=== PATIENT | male | born 1960 | race Caucasian/White ===

== ENCOUNTER 2022-10-07 12:50 | Day surgery (SDC) | payer BC ==
[~2022-10-07] VITALS: Ht 182.9 cm; Wt 82.3 kg
[~2022-10-07 12:50] MED LIST: PERCOCET 5-3251 EACH PO
--- NOTE | 2022-10-07 13:22 | NUR ---
PT REPORTS HE ONLY HAD 1 BOWEL MOVEMENT YESTERDAY AFTER DRINKING THE BOWEL PREP AND HAS HAD NONE SINCE. CHARGE NURSE NOTIFIED. CHECK IN HELD OFF AT THIS TIME TO TALK TO DR. ONEILL.
[2022-10-07 13:33] VITALS: BP 140/86
--- NOTE | 2022-10-07 14:58 | NUR ---
PT AND PT'S FRIEND UPDATED ON WAIT TIMES FOR THE PROCEDURE. BOTH PARTIES THANKFUL FOR THE UPDATE.
--- NOTE | 2022-10-07 17:00 | NUR ---
10/07/22 1700 Dana Dneton 1652 PT ARRIVED TO PACU ON 2L VIA NC, PT ASLEEP AND REACTIVE TO TACTILE STIMULI.
[2022-10-07 19:01] VITALS: BP 166/101
--- NOTE | 2022-10-08 13:28 | OR ---
[facility] [address], [place] [address] Signed DATE OF OPERATION: 10/07/2022 SURGEON: Ted Oneill MD PREOPERATIVE DIAGNOSIS: Positive Cologuard test. POSTOPERATIVE DIAGNOSIS: No evidence of polyp, but inadequate prep right colon. PROCEDURE: Total colonoscopy to cecum with irrigation of colon. ANESTHESIA: Intravenous sedation, fentanyl 100 mcg and Versed 8 mg. INDICATION: This 62-year-old white man is a patient of AMY Matute. He underwent colon evaluation by Cologuard test, which was found to be positive. The patient has no symptoms of bleeding, diarrhea, or constipation. He does have history of prostate cancer treatment. He is admitted to undergo colonoscopy on the basis of his positive polyps of Cologuard test. Of note, as regards his bowel prep, which was a standard MiraLAX prep, he did have five days of low-fiber diet and took the MiraLAX as directed, but had only one bowel movement following the preparation. On that basis, it was uncertain to what extent his bowel as well prepped. He was admitted to undergo colonoscopy on the basis of his positive Cologuard, understand the risk of bleeding, infection, and perforation. FINDINGS: The distal bowel beyond the transverse colon was well prepped overall, but the more proximal bowel was poorly prepped. The lumen could be intubated and complete colonoscopy to the cecum was accomplished. Despite efforts at irrigation, the thickened gelatinous stool lining the right colon, cecum and right transverse colon could not be cleared entirely. The remaining colon, which was easily evaluated showed no evidence of polyp or other abnormality. On that basis, I will recommend a repeat colonoscopy in three months or so. Given the findings on Cologuard test and inadequacy of prep currently. Electronically Signed By: TED ONEILL MD 10/08/22 1328 PATIENT NAME: JAM LEMA OPERATIVE REPORT DATE OF : 62 REPORT #: [id number] PHYSICIAN: TED ONEILL MD PCP: CT WALKER PA-C REPORT IS CONFIDENTIAL AND NOT TO BE RELEASED WITHOUT AUTHORIZATION [facility] [address], [place] [address] Signed DESCRIPTION OF PROCEDURE: The patient was brought to the endoscopy suite and placed in lateral decubitus position, given intravenous sedation to the point of slurred speech and nystagmus. Full cardiopulmonary monitoring was maintained. An Olympus video colonoscope was passed in the rectum and manipulated throughout the colon. The prep was reasonably good throughout the sigmoid and left colon. Upon entry to the mid transverse colon, however, somewhat thickened gelatinous hagan and stool were noted. The colonoscope was passed with all due care beyond hepatic flexure, ultimately to the cecum. In this area, the stool was rather thickened. Irrigation was undertaken, which did allow for some visualization of some areas of mucosa, but it was relatively inadequate as a prep and therefore it cannot be relied upon as to have seen polyps in the right colon and the right transverse colon. Upon withdrawal to the mid transverse colon, good preparation was noted and the remaining colon appeared normal without sign of polyp or other abnormality. The scope was removed. ASSESSMENT: With positive Cologuard test and an inadequate bowel prep despite full colonoscopy to the cecum, one should consider strongly and repeat colonoscopy with modified bowel prep to be with double volume and possibly double length of fiber abstinence. He would recommend to do this in 3-6 months. MD LA NENA Damian/MODL /[id number] cc: AMY Matute Copies: ~ Electronically Signed By: TED ONEILL MD 10/08/22 1328 PATIENT NAME: JAM LEMA OPERATIVE REPORT DATE OF : 62 REPORT #: [id number] PHYSICIAN: TED ONEILL MD PCP: CT WALKER PA-C REPORT IS CONFIDENTIAL AND NOT TO BE RELEASED WITHOUT AUTHORIZATION
== END 2022-10-07 19:03 | disposition home or self-care (01) ==
LOC: DS 12:50 → OPS 12:50 → DS 12:59 → OPS 14:00
PROVIDERS: ATTEND Surgery
DX: R19.5 Other fecal abnormalities (principal); Z85.46 Personal history of malignant neoplasm of prostate
CPT/HCPCS: J2250; J2405; J3010; J7121